=== PATIENT | female | born 1985 ===

== ENCOUNTER 2018-04-06 08:04 | Inpatient (IN) | payer OTHER ==
[~2018-04-06] VITALS: Ht 170.2 cm; Wt 79.4 kg
[~2018-04-06 08:04] MED LIST: PRENATAL + DHA1 EAC1
== END 2018-04-08 13:31 | DRG 807 ==
LOC: OB/GYN 08:04 → LDR 08:04 → OB/GYN 15:45
PROC: 10E0XZZ Delivery of Products of Conception, External Approach (ICD-10-PCS; principal; 2018-04-06)
PROC: 3E033VJ Introduction of Other Hormone into Peripheral Vein, Percutaneous Approach (ICD-10-PCS; 2018-04-06)
PROC: 10907ZC Drainage of Amniotic Fluid, Therapeutic from Products of Conception, Via Natural or Artificial Opening (ICD-10-PCS; 2018-04-06)
PROC: 4A1HXCZ Monitoring of Products of Conception, Cardiac Rate, External Approach (ICD-10-PCS; 2018-04-06)
DX: O80 Encounter for full-term uncomplicated delivery (principal); Z37.0 Single live birth; O72.3 Postpartum coagulation defects; Z3A.40 40 weeks gestation of pregnancy

== ENCOUNTER 2018-04-08 19:58 | Inpatient (IN) | payer OTHER ==
[~2018-04-08] VITALS: Ht 170.2 cm; Wt 79.4 kg
== END 2018-04-10 17:22 | disposition home or self-care (01) | DRG 776 ==
LOC: OBS/DEL 19:58 → LDR 04-09 19:42
DX: O13.5 Gestational [pregnancy-induced] hypertension without significant proteinuria, complicating the puerperium (principal); O72.3 Postpartum coagulation defects

== ENCOUNTER 2021-09-17 13:35 | Inpatient (IN) | payer OTHER ==
[~2021-09-17] VITALS: Ht 170.2 cm; Wt 81.2 kg
[~2021-09-17 13:35] MED LIST changes: +CLARITIN10 MG PO; +ECOTRIN81 MG PO
== END 2021-09-19 14:11 | disposition home or self-care (01) | DRG 807 ==
LOC: LDR 13:35 → OB/GYN 13:35 → LDR 14:04 → OB/GYN 23:20
PROVIDERS: ADMIT Obstetrics & Gynecology; ATTEND Obstetrics & Gynecology
PROC: 10E0XZZ Delivery of Products of Conception, External Approach (ICD-10-PCS; principal; 2021-09-17)
PROC: 4A1HXCZ Monitoring of Products of Conception, Cardiac Rate, External Approach (ICD-10-PCS; 2021-09-17)
DX: O36.5930 Maternal care for other known or suspected poor fetal growth, third trimester, not applicable or unspecified (principal); Z37.0 Single live birth; Z3A.38 38 weeks gestation of pregnancy; Z20.822 Contact with and (suspected) exposure to COVID-19